=== PATIENT | female | born 1950 | race Two or more races ===

== ENCOUNTER 2021-08-02 20:30 | Emergency (ER) | payer MEDICARE, BC ==
[~2021-08-02] VITALS: Ht 157.5 cm; Wt 54.4 kg
[2021-08-02] MEDS ORDERED: CEPH500C2 PO (21:32)
[2021-08-02 21:39] VITALS: BP 149/80
--- NOTE | 2021-08-02 21:39 | NUR ---
Patient discharged to home in stable condition. Written and verbal after care instructions given. Patient verbalizes understanding of instruction.
== END 2021-08-02 21:39 | disposition home or self-care (01) ==
LOC: ER 20:40
DX: I86.8 Varicose veins of other specified sites (principal)
CPT/HCPCS: 73130-TC